=== PATIENT | male | born 1950 | race Caucasian/White ===

== ENCOUNTER 2017-03-06 07:57 | Day surgery (SDC) | payer MEDICARE ==
[~2017-03-06] VITALS: Ht 172.7 cm; Wt 118.0 kg
[~2017-03-06 07:57] MED LIST: ASPI-110 PO; ATOR40TA16 PO; BACL10TA PO; CHOL1CHW5 CHEW; FISHCAP4 PO; METO50TA PO; MULT1TAB46; TAMS0.4C4 PO
[2017-03-06] MEDS ORDERED: NS 1000P @30 MLS/HR (KVO) IV SCH (08:15)
[2017-03-06 08:31] VITALS: BP 159/93; PULSE 64; RESP 18; TEMP 98.8; O2SAT 96
[2017-03-06] MEDS ORDERED: NITR0.4S SL (08:41)
[2017-03-06] MEDS ORDERED: HEPARIN-NS/PF INJ 500 ML ONE (08:53)
[2017-03-06] MEDS ORDERED: MIDAZOLAM HCL 2 MG/2 ML VIAL ONE ×2 (08:56→09:11)
[2017-03-06] MEDS ORDERED: HEPARIN SODIUM - IV 10,000 UNITS/10 ML VIAL ONE (09:21)
[2017-03-06] MEDS ORDERED: CLOPIDOGREL 300 MG TAB ONE (10:15)
[2017-03-06] MEDS ORDERED: SODIUM CHLOR 0.9% 1000 ML INJ 1,000 ML IV SCH (10:17)
--- NOTE | 2017-03-06 10:23 | CATHPROC ---
[employer] HIS Report Study Information Study Number Scheduled Start Study Start [id number] 03/06/2017 Mar 06 2017 8:39AM Referring Institution Admit Source Facility Department 1 Other [facility] - Auto Inspection Specialist Physician and Clinical Staff Initial Cl Hager Grounds Keeper Nick Khan,HANNA Recorder Renny Howard,RT(R) ScrDennys Lentz RCIS(BS) Procedures Performed Procedure Location (Site) Vessel Name Coronary Angiograms LCA Left Coronary Coronary Angiograms RCA Right Coronary PTCA RCA Dist Right Coronary PTCA ADD ON'S Stent RCA Dist Right Coronary Wire insertion Fem Art (right) Femoral Art Equipment Time Leather Shaver Description Size Mfg Part Number Used/Scraped 09:21 [employer] WIRE, Yumber PROWATER 180CM 180CM [id number] Used TRANSDUCER, TRUWAVE 09:10 VALDIVIA DELONG * [id number] Used W/STOCKCOCK 09:56 [employer] W[employer], CHOICE PT 182CM 182CM [id number] Used [id number] *[id number] *[id number] 10:11 [employer]IG[employer] ANGIOSEAL, FR6 VIP FR 6 [id number] Used [id number] 09:10 [employer] INDUSTRIES PACK, CCL CUSTOM * Used *[id number] 09:10 [employer] PACER PEN, SKIN DUAL W/ RULER * [id number] Used [id number] 09:33 [employer] BALLOON, 2.5 X 10MM EUPHORA 10MM Used *[id number] 09:39 [employer] BALLOON, 3.0 X 10MM EUPHORA 10MM Used *[id number] 09:56 [employer] BALLOON, 3.5 X 10MM EUPHORA 3.5 X 10 [id number] Used [id number] 09:49 [employer] STENT, 3.5 9 INTEGRITY 3.5 9 Used *[id number] 10:07 [employer] STENT, 3.5 9 INTEGRITY 3.5 9 Used *[id number] 09:23 [employer] MEDICAL 30 GIN INDEFLATOR Used *[id number] 09:22 [employer] MEDICAL JR 4.0 GUIDE CATHETER FR 6 [id number] Used [id number] 09:10 [employer] MEDICAL SHEATH, FR6.5 PRELUDE 11CM FR 6.5 [id number] Used *[id number] 09:10 [employer] WIRE, 3MMJ .035 180CM 180CM [id number] Used [id number] 09:10 NAMIC MANIFOLD, 4 PORT * Used *[id number] 09:10 [employer] OMNIPAQUE, 350 MG, 100ML 100ML [id number] Used [id number] 09:10 [employer] BLANKET,WARM AIR CCL * Used *[id number] Scrap: Physician 09:30 [employer] STENT, 4.0 9 INTEGRITY 4.0 9 [id number] choice Equipment Model, Serial, Lot Number and Expiration Data Description Model Number Serial Number Lot Number Expiration Date ANGIOSEAL, FR6 VIP [id number] 12-20-2017 STENT, 3.5 9 INTEGRITY [id number] 09-02-2017 STENT, 3.5 9 INTEGRITY [id number] 11-23-2017 STENT, 4.0 9 INTEGRITY [id number] 01-13-2018 WIRE, CHOICE PT 182CM [id number] 09-19-2018 History: Allergies Allergy Reaction Penicillin History: Risk Factors Family History of Hypertension Dyslipidemia Previous ID Previous Heart Failure Premature CAD Yes Yes Yes No No Prior Valve Prior PCI Prior PCIDate Prior CABG Surgery No Yes 10/23/2010 No Cerebrovascular Peripheral Artery Chronic Lung On Dialysis Diabetes Disease Disease Disease No No No No No Labs Hgb (g/dl) Hct (%) WBC (l/cumm) Platelets (thousands) 12.00-18.00 37.00-55.00 4.80-10.80 140.00-450.00 16.3 47.8 7.8 208 Glucose (mg/dl) BUN (mg/dl) Creatinine (mg/dl) BUN:Creatinine (1:x) 60.00-110.00 8.00-20.00 0.10-9.00 10.00-20.00 79 17 0.9 18.9 Na (meq/l) K (meq/l) 138.00-146.00 3.80-5.10 143 4.3 CPK-MB (ng/ML) 0.00-7.00 Not Drawn Medication Medication Total Dose (Bolus/Oral) Medication Total Dosage/Unit 1% XYLOCAINE 20 mL HEPARIN 7000 units OXYGEN 2 l/min PLAVIX 600 mg VERSED 4 mg Medications (Bolus/Oral) Medication Time Given Dosage/Unit Administered By Reason VERSED 03/06/2017 9:04:24 AM 2 mg Nick Khan Patient arrived on 2 mg VERSED given by Nick Khan RN in Left Antecubital via Peripheral IV. Ord ered by Cl Sprague. 1% XYLOCAINE 03/06/2017 9:09:50 AM 20 mL Cl Sprague Patient arrived on 20 mL 1% XYLOCAINE given by Cl Sprague in Right Groin via Subcutaneous. Order ed by Cl Sprague. VERSED 03/06/2017 9:12:30 AM 2 mg Nick Khan Patient arrived on 2 mg VERSED given by Nick Khan RN in Left Antecubital via Peripheral IV. Ord ered by Cl Sprague. OXYGEN 03/06/2017 9:15:11 AM 2 l/min Nick Khan Patient arrived on 2 l/min OXYGEN given by Nick Khan RN via Nasal. Ordered by Cl Sprague. HEPARIN 03/06/2017 9:22:18 AM 7000 units Nick Khan 7000 units HEPARIN given in lab by Nick Khan RN in Left Antecubital via Peripheral IV. Ordered by Cl Sprague. PLAVIX 03/06/2017 10:20:18 AM 600 mg Nick Khan 600 mg PLAVIX given in lab by Nick Khan RN via Oral. Ordered by Cl Sprague. Medication (Drip) Medication Time Given Dosage/Unit Concentration/Unit Diluent (ml) Solution IV Solutions 03/06/2017 8:58:29 AM 0 mL (IV) 500 NaCl .9 Patient arrived on IV Solutions given by Cl Sprague in Left Antecubital via Peripheral IV. Pump/ Drip Flow = 20 ml/hr using NaCl .9. Ordered by Cl Sprague. Reason: As per physicians verbal order. Initial Case Assessment Cardiovascular HR Rhythm NIBP Chest Pain 65 sr 148/84 0 Edema Present Skin color Skin None Normal Warm Dry Circulatory - Right Pulses Dorsalis Pedis Femoral 2 2 Scale (0,1,2,3,4,d) Circulatory - Left Pulses Dorsalis Pedis Femoral 2 2 Scale (0,1,2,3,4,d) Neurological State Oriented to time-place- Alert Moves all extremities person Respiration - General Respiration Rate SpO2 (%) O2 (lpm) (B/min) 67 98 0 Final Case Assessment Cardiovascular HR Rhythm NIBP Chest Pain 69 SR 139/85 0 Edema Present Skin color Skin None Normal Warm Dry Circulatory - Right Pulses Dorsalis Pedis Femoral 2 2 Scale (0,1,2,3,4,d) Circulatory - Left Pulses Dorsalis Pedis Femoral 2 2 Scale (0,1,2,3,4,d) Neurological State Oriented to time-place- Alert Moves all extremities person Respiration - General Respiration Rate SpO2 (%) O2 (lpm) (B/min) 18 98 2 Chronological Log Time Study Chronological Log 8:48:11 Patient arrived via Bed. 8:48:13 Patient Name, D.O.B, / Armband Verified By R.N. 8:48:14 Consent signed by the physician and the patient and verified by the Auto Inspection Specialist staff. 8:48:16 Pre-op and post- op instructions given; patient acknowledges understanding of instructions. 8:48:45 Verbal Stimulation=2 Physical Stimulation=2 Airway=2 Respiration=2 TOTAL=8. (0=absent, 1=li mited, 2=present) 8:56:37 Reference ECG taken 8:57:00 Presedation assessment performed by Auto Inspection Specialist RN. 8:57:02 Patient has been NPO for More than 6Hrs. 8:57:04 Skin Breakdown-none present per patient. Vitals capture started with the following parameters, Patient=Adult, Interval=15 min, Initial P okitrea=491 mmHg, 8:57:18 Deflation Rate=5 mmHg 8:58:17 A # 20 IV was noted in the Antecubital (left). Grade = 0 Patient arrived on IV Solutions given by Cl Sprague in Left Antecubital via Peripheral IV. Pump/Drip Flow = 20 8:58:29 ml/hr using NaCl .9. Ordered by Cl Sprague. Reason: As per physicians verbal order. 8:58:33 HR=69 bpm, XYXH=654/84 mmhg, SpO2=97.0 %, Resp=12 B/min, Daugherty=2 8:59:04 History and physical on the chart or being dictated. Assessment: Initial Case, HR=65 BPM, Rhythm=sr, WDSQ=178/84 mmhg, Chest Pain=0, Edema=None, Dutton r=Normal, Skin = Warm, Dry Right Pulses: Urbano Ped=2, Femoral=2 8:59:06 Left Pulses: Urbano Ped=2, Femoral=2 Neurological: State=Alert, Ox3, PARDO Respiration: Resp=67 B/min, SpO2=98 %, O2=0 lpm 9:00:06 Bilateral groins prepped with 2% chlorhexidine, and with a 3 min. waiting time. 9:02:57 HR=65 bpm, RMNI=459/84 mmhg, SpO2=95.0 %, Resp=15 B/min, Daugherty=2 Time Out. Correct patient, correct procedure,correct physician, ,power injector not loaded with contrast with surgical 9:04:01 team present. Time Out Concurred by MD, individual staff and [employer] in procedure. Not loaded at th is time. 9:04:21 Presedation re-assessment performed by Auto Inspection Specialist RN. 9:04:22 Case Start Patient arrived on 2 mg VERSED given by Nick Khan RN in Left Antecubital via Peripheral IV . Ordered by Celestine 9:04:24 Cl. 9:05:44 Verbal Stimulation=2 Physical Stimulation=2 Airway=2 Respiration=2 TOTAL=8. (0=absent, 1=atwood ited, 2=present) 9:06:26 Pressure channel 1 zeroed. 9:07:58 HR=67 bpm, ZDUU=699/85 mmhg, SpO2=92.0 %, Resp=8 B/min, Daugherty=2 Patient arrived on 20 mL 1% XYLOCAINE given by Cl Sprague in Right Groin via Subcutaneous. Ordered by 9:09:50 Cl Sprague. Patient arrived on 2 mg VERSED given by Nick Khan, HANNA in Left Antecubital via Peripheral IV . Ordered by Celestine 9:12:30 Cl. 9:12:55 HR=62 bpm, JXCH=958/90 mmhg, SpO2=92.0 %, Resp=18 B/min, Daugherty=2 9:14:54 Access site was Right Femoral Artery. 9:15:00 A SHEATH, FR6.5 PRELUDE 11CM FR 6.5 was advanced into the Fem Art (right) using the Modified Seldinger technique. 9:15:11 Patient arrived on 2 l/min OXYGEN given by Nick Khan, HANNA via Nasal. Ordered by Cl Sprague. Recorded Pressure: Ao, HR=69, Condition=Condition 1 9:16:20 (Aorta) Ao 127/73/96 9:16:31 The LCA was injected and visualized at various angles. OMNIPAQUE, 350 MG, 100ML 100ML used. 9:17:58 HR=66 bpm, MFGG=253/80 mmhg, SpO2=90.0 %, Resp=17 B/min, Daugherty=2 9:19:09 Catheter was removed A JR 4.0 INFINITI CATHETER FR 6 was advanced over a wire. OMNIPAQUE, 350 MG, 100ML 100ML was use d for 9:19:33 injections. 9:19:39 The RCA was injected and visualized at various angles. OMNIPAQUE, 350 MG, 100ML 100ML used. 9:22:01 Catheter was removed 9:22:18 7000 units HEPARIN given in lab by Nick Khan RN in Left Antecubital via Peripheral IV. Ordered by Cl Sprague. 9:23:00 HR=69 bpm, NRPW=146/73 mmhg, SpO2=90.0 %, Resp=12 B/min, Daugherty=2 A JR 4.0 GUIDE CATHETER FR 6 was advanced over a wire. OMNIPAQUE, 350 MG, 100ML 100ML was used f or 9:23:03 injections. 9:23:13 OMNIPAQUE, 350 MG, 100ML 100ML and 30 GIN INDEFLATOR added. 9:24:38 A WIRE, ASAHI PROWATER 180CM 180CM was inserted via Fem Art (right). 9:27:59 HR=71 bpm, EQFX=234/82 mmhg, SpO2=91.0 %, Resp=15 B/min, Daugherty=2 9:29:09 Interventional wire has crossed the lesion An STENT, 4.0 9 INTEGRITY 4.0 9 Bare Metal Stent was inserted through a JR 4.0 GUIDE CATHETER FR 6 over a 9:30:06 WIRE, ASAHI PROWATER 180CM 180CM. 9:31:10 Activated Clotting Time Drawn 9:31:57 Stent not deployed. Stent removed and intact. 9:32:56 HR=73 bpm, WWDN=781/84 mmhg, SpO2=94.0 %, Resp=20 B/min, Daugherty=2 9:33:35 A BALLOON, 2.5 X 10MM EUPHORA 10MM was inserted over WIRE, ASAHI PROWATER 180CM 180CM via th e RCA Dist. A BALLOON, 2.5 X 10MM EUPHORA 10MM over a WIRE, ASAHI PROWATER 180CM 180CM in the RCA Dist was inflated 9:33:46 using a 30 GIN INDEFLATOR at 12 gni for 15 sec. A BALLOON, 2.5 X 10MM EUPHORA 10MM over a WIRE, ASAHI PROWATER 180CM 180CM in the RCA Dist was inflated 9:34:51 using a 30 GIN INDEFLATOR at 14 gin for 25 sec. 9:35:34 Balloon Removed. An STENT, 4.0 9 INTEGRITY 4.0 9 Bare Metal Stent was inserted through a JR 4.0 GUIDE CATHETER F R 6 over a 9:35:43 WIRE, ASAHI PROWATER 180CM 180CM. 9:35:59 ACT (Normal Range 90-180) = 277 9:37:38 Stent not deployed. Stent removed and intact. 9:37:57 HR=73 bpm, CAZK=262/81 mmhg, SpO2=94.0 %, Resp=21 B/min, Daugherty=2 9:38:45 A BALLOON, 3.0 X 10MM EUPHORA 10MM was inserted over WIRE, ASAHI PROWATER 180CM 180CM via th e RCA Dist. A BALLOON, 3.0 X 10MM EUPHORA 10MM over a WIRE, ASAHI PROWATER 180CM 180CM in the RCA Dist was inflated 9:39:07 using a 30 GIN INDEFLATOR at 12 gin for 25 sec. 9:40:47 Balloon Removed. An STENT, 4.0 9 INTEGRITY 4.0 9 Bare Metal Stent was inserted through a JR 4.0 GUIDE CATHETER F R 6 over a 9:41:15 WIRE, ASAHI PROWATER 180CM 180CM. 9:42:48 Stent not deployed. Stent removed and intact. 9:42:58 HR=71 bpm, AILC=464/81 mmhg, SpO2=93.0 %, Resp=13 B/min, Daugherty=2 A BALLOON, 3.5 X 10MM EUPHORA 3.5 X 10 was inserted over WIRE, ASAHI PROWATER 180CM 180CM via t he RCA 9:44:59 Dist. A BALLOON, 3.5 X 10MM EUPHORA 3.5 X 10 over a WIRE, ASAHI PROWATER 180CM 180CM in the RCA Dist was 9:45:09 inflated using a 30 GIN INDEFLATOR at 10 gin for 10 sec. 9:45:40 Balloon Removed. An STENT, 4.0 9 INTEGRITY 4.0 9 Bare Metal Stent was inserted through a JR 4.0 GUIDE CATHETER F R 6 over a 9:46:40 WIRE, ASAHI PROWATER 180CM 180CM. 9:47:59 HR=72 bpm, KKXR=910/84 mmhg, SpO2=93.0 %, Resp=14 B/min, Daugherty=2 9:48:34 Stent not deployed. Stent removed and intact. An STENT, 3.5 9 INTEGRITY 3.5 9 Bare Metal Stent was inserted through a JR 4.0 GUIDE CATHETER F R 6 over a 9:49:58 WIRE, ASAHI PROWATER 180CM 180CM. 9:50:45 Stent not deployed. Stent removed and intact. A BALLOON, 3.5 X 10MM EUPHORA 3.5 X 10 was inserted over WIRE, ASAHI PROWATER 180CM 180CM via t he RCA 9:52:30 Dist. 9:53:00 HR=70 bpm, QOLC=750/75 mmhg, SpO2=94.0 %, Resp=15 B/min, Daugherty=2 A BALLOON, 3.5 X 10MM EUPHORA 3.5 X 10 over a WIRE, ASAHI PROWATER 180CM 180CM in the RCA Dist was 9:55:49 inflated using a 30 GIN INDEFLATOR at 14 gin for 25 sec. 9:56:52 Balloon Removed. 9:57:08 Wire removed 9:57:10 A WIRE, CHOICE PT 182CM 182CM was inserted via Fem Art (right). 9:57:43 A BALLOON, 3.5 X 10MM EUPHORA 3.5 X 10 was inserted over WIRE, CHOICE PT 182CM 182CM via the RCA Dist. 9:58:01 HR=64 bpm, XXUV=372/83 mmhg, SpO2=96.0 %, Resp=22 B/min, Daugherty=2 A BALLOON, 3.5 X 10MM EUPHORA 3.5 X 10 over a WIRE, CHOICE PT 182CM 182CM in the RCA Dist was i nflated using 9:58:12 a 30 GIN INDEFLATOR at ~GIN~ gin for ~SECONDS~ sec. 10:00:00 Balloon Removed. 10:00:53 A BALLOON, 2.5 X 10MM EUPHORA 10MM was inserted over WIRE, CHOICE PT 182CM 182CM via the RC A Dist. A BALLOON, 2.5 X 10MM EUPHORA 10MM over a WIRE, CHOICE PT 182CM 182CM in the RCA Dist was infla ryan using a 10::55 30 GIN INDEFLATOR at 16 gin for 25 sec. 10:02:11 Balloon Removed. 10:03:02 HR=69 bpm, DAGO=931/80 mmhg, SpO2=94.0 %, Resp=17 B/min, Daugherty=2 An STENT, 3.5 9 INTEGRITY 3.5 9 Bare Metal Stent was inserted through a JR 4.0 GUIDE CATHETER F R 6 over a :04:03 WIRE, CHOICE PT 182CM 182CM. A STENT, 3.5 9 INTEGRITY 3.5 9 was deployed using a 30 GIN INDEFLATOR at 14 atmospheres for 18 seconds in the :04:36 RCA Dist. 10:06:16 Delivery device removed An STENT, 3.5 9 INTEGRITY 3.5 9 Bare Metal Stent was inserted through a JR 4.0 GUIDE CATHETER F R 6 over a 10:07:45 WIRE, CHOICE PT 182CM 182CM. 10:08:03 HR=73 bpm, RMDI=485/85 mmhg, SpO2=94.0 %, Resp=13 B/min, Daugherty=2 A STENT, 3.5 9 INTEGRITY 3.5 9 was deployed using a 30 GIN INDEFLATOR at 16 atmospheres for 20 seconds in the :08:25 RCA Dist. 10::50 Delivery device removed ::54 Wire removed 10:: Catheter was removed 10:: An injection in the Fem Art (right) was made through the SHEATH, FR6.5 PRELUDE 11CM FR 6.5. 10:11:05 ANGIOSEAL, FR6 VIP FR 6 placement in the Fem Art (right) Assessment: Final Case, HR=69 BPM, Rhythm=SR, FJPQ=284/85 mmhg, Chest Pain=0, Edema=None, Color =Normal, Skin = Warm, Dry Right Pulses: Urbano Ped=2, Femoral=2 10:11:16 Left Pulses: Urbano Ped=2, Femoral=2 Neurological: State=Alert, Ox3, PARDO Respiration: Resp=18 B/min, SpO2=98 %, O2=2 lpm 10:12:36 Case End 10:12:39 Sterile dressing applied to site 10:12:41 No case complications noted. 10:12:43 Cine recording checked. 10:12:46 Bedside Report will be given. 10:12:48 Implantable Device card placed in patient's chart. 10:12:54 Contrast Scanned 10:13:00 HR=67 bpm, MGNG=309/85 mmhg, SpO2=99.0 %, Resp=7 B/min, Daugherty=2 10:13:04 Vitals capture stopped. 10:20:18 600 mg PLAVIX given in lab by Nick Khan RN via Oral. Ordered by Cl Sprague. End Study - Contrast Media Used In Study Contrast Total Opened (mL) Total Used (mL) Total Wasted (mL) Omnipaque 275 275 0 End Study - Maximum Contrast Load Max Contrast Load (mL) 655.6 End Study - Radiation Exposure Fluoro Time (minutes) 16.2 End Study - Patient Disposition Complications Transferred To No Telemetry Bed
[2017-03-06] MEDS ORDERED: SODIUM CHLOR 0.9% 250 ML INJ 250 ML IV PRN (10:30)
[2017-03-06] MEDS ORDERED: MISC INFORMATION XX ONE (10:30)
[2017-03-06] MEDS ORDERED: ONDANSETRON HCL 4 MG/2 ML VIAL IV PRN (10:30)
[2017-03-06] MEDS ORDERED: LIDOCAINE HCL 1% 50 ML VIAL INFIL PRN (10:30)
[2017-03-06] MEDS ORDERED: BACITRACIN OINT 0.9 GM PKT TOP ONE (10:30)
[2017-03-06] MEDS ORDERED: METOCLOPRAMIDE HCL 10 MG/2 ML VIAL IV PRN (10:30)
[2017-03-06] MEDS ORDERED: ATROPINE SULFATE 1 MG/ML VIAL IV PRN (10:30)
[2017-03-06] MEDS ORDERED: LORazepam 2 MG/ML VIAL IV PRN (10:30)
--- NOTE | 2017-03-06 11:45 | MA ---
cc: DOUG CASTELLON MD DATE 03/06/2017 PROCEDURE The patient was prepped and draped in the usual fashion. A 6 sheath was inserted percutaneously into the right femoral artery. Coronary angiography was done with Jorge preformed catheters. RESULTS Aortic pressure was 127/73. CORONARY ANGIOGRAPHY The left main coronary was normal. The left anterior descending artery demonstrated luminal irregularities throughout its course with a 30% stenosis noted in its proximal portion. The first diagonal branch appeared to be totally occluded with collateralization from the left system. An intraluminal stent was present in the LAD which was widely patent. The left circumflex artery arose from the left main, was essentially without high-grade stenosis. There were mild luminal irregularities. Collateralization of the distal right coronary was seen through the left circumflex. The right coronary was anatomically dominant. Significant luminal irregularities were present throughout its course with a 40-50% stenosis noted in the midportion. A subtotal stenosis was present at the crux. This is felt be the culprit lesion. An FR-4 guide was used and Prowater wire was advanced across the lesion and actually into the posterolateral branch. I was unable to successfully negotiate the posterior descending. An attempt at primary stenting with a 4.0 bare metal stent was unsuccessful. Multiple inflations were made, first with a 2.5 balloon and then with a 3.0 and finally a 3.5 balloon. This did result in some modification of the lesion. The stent was unable to be passed. The catheter was withdrawn as was the Prowater wire. A PT Floppy wire was then advanced across the lesion and this time successfully into the posterior descending branch. Two inflations were made with the 2.5 balloon and then a 3.5 x 8-mm bare metal stent was able to be deployed. Following deployment, a stenosis just distal to the stent was still present compromising the lumen by approximately 50%. A second 3.5 x 8-mm bare metal stent was then deployed overlapping the first stent to 16 atmospheres with a very good cosmetic result. CRYSTAL-3 flow was present both pre- and post-dilatation and post-stenosis was 0. The equipment was then withdrawn and the groin was sealed with Angio-Seal technique. IMPRESSION Successful PTCA and stenting of a high-grade stenosis in the mid to distal right coronary artery. MD ZAHRAA Russell/SHANE /10:24 AM /11:22 AM
[2017-03-06] MEDS ORDERED: IOHEXOL 350 MG/ML 100 ML BTL (for Cath Lab) OTHER ONE (14:28)
== END 2017-03-06 16:50 | disposition home or self-care (01) ==
LOC: HDOC 07:57 → HDIC 07:58 → HDOC 16:50
PROVIDERS: ATTEND Internal Medicine Cardiovascular Disease
DX: I25.119 Atherosclerotic heart disease of native coronary artery with unspecified angina pectoris (principal); I25.82 Chronic total occlusion of coronary artery; I25.2 Old myocardial infarction; Z95.5 Presence of coronary angioplasty implant and graft; Z87.891 Personal history of nicotine dependence; Z88.0 Allergy status to penicillin; Z79.82 Long term (current) use of aspirin
CPT/HCPCS: 85002; 92928; 93454; C1725; C1760; C1769; C1876; C1887; C1893; G0269; J1644; J2250; Q9967

== ENCOUNTER 2017-05-24 06:26 | Day surgery (SDC) | payer MEDICARE ==
[~2017-05-24] VITALS: Ht 172.7 cm; Wt 115.0 kg
[~2017-05-24 06:26] MED LIST changes: -BACL10TA PO; -MULT1TAB46; +NITR0.4S SL
[2017-05-24 06:56] VITALS: BP 153/85; PULSE 79; RESP 16; TEMP 97.8; O2SAT 95
[2017-05-24] MEDS ORDERED: ASPI-147 PO (07:12)
[2017-05-24] MEDS ORDERED: VITATAB11 PO (07:12)
[2017-05-24] MEDS ORDERED: PLAV75TA29 PO (07:12)
[2017-05-24] MEDS ORDERED: ISOS30TA3 PO (07:12)
[2017-05-24] MEDS ORDERED: CHOL1CAP6 PO (07:12)
[2017-05-24] MEDS ORDERED: BACL10TA PO (07:12)
[2017-05-24] MEDS ORDERED: NS 1000P @30 MLS/HR (KVO) IV SCH (07:15)
[2017-05-24] MEDS ORDERED: HEPARIN-NS/PF INJ 500 ML ONE (08:14)
[2017-05-24] MEDS ORDERED: MIDAZOLAM HCL 2 MG/2 ML VIAL ONE (08:15)
[2017-05-24] MEDS ORDERED: HEPARIN SODIUM - IV 10,000 UNITS/10 ML VIAL ONE (08:36)
[2017-05-24] MEDS ORDERED: MISC INFORMATION XX ONE (09:30)
--- NOTE | 2017-05-24 09:32 | CATHPROC ---
Yodlee HIS Report Study Information Study Number Admission Scheduled Start Study Start [id number] May 24 2017 6:26AM 05/24/2017 May 24 2017 8:01AM Study Type [place] Service Left/Possible PCI Cardiac Catheterization Admit Source Facility Department Other [facility] - [facility] Physician and Clinical Staff Initial Cl Hager Cap Sewer Cora Rouse BSRN Other cathlab, cathlab Recorder Ruddy Temple RCIS(BS) More Lr RCIS TECH2 Procedures Performed Procedure Location (Site) Vessel Name Coronary Angiograms LCA Left Coronary Coronary Angiograms RCA Right Coronary Drug Eluting Inflatio LAD Prox Left Coronary Drug Eluting Inflatio RCA Dist Right Coronary PTCA LAD Prox Left Coronary Wire insertion Fem Art (right) Femoral Art Equipment Time Pallet Stone Positioner Description Size Mfg Part Number Used/Scraped [id number] 08:50 [employer] WIRE, ASAHI PROWATER 180CM 180CM Used *[id number] TRANSDUCER, TRUWAVE [id number] 08:09 VALDIVIA DELONG * Used W/STOCKCOCK *[id number] *[id number] *[id number] *[id number] *[id number] 09:22 DAIG/[employer] ANGIOSEAL, FR6 VIP FR 6 Used *[id number] 08:09 [employer] PACK, CCL CUSTOM * Used *[id number] 08:09 [employer] PACER PEN, SKIN DUAL W/ RULER * Used *[id number] 09:01 MEDTRONIC BALLOON, 3.5 X 12MM EUPHORA 12MM Used *[id number] STENT, 3.0 12 RESOLUTE [id number] 08:57 MEDTRONIC 3.0 12 Used INTEGRITY RX *[id number] STENT, 3.5 9 RESOLUTE 09:10 MEDTRONIC 3.5 9 [id number] Used INTEGRITY RX [id number] 08:48 CallVU MEDICAL 30 GIN INDEFLATOR Used *[id number] 08:09 [employer]U MEDICAL SHEATH, FR6.5 PRELUDE 11CM FR 6.5 038ACT Used *[id number] 08:09 [employer] MEDICAL WIRE, 3MMJ .035 180CM 180CM Used *[id number] 08:09 NAMIC MANIFOLD, 4 PORT * Used *[id number] 08:09 [employer]COMED OMNIPAQUE, 350 MG, 100ML 100ML [id number] Used [id number] 08:09 [facility] BLANKET,WARM AIR CCL * Used *[id number] Equipment Model, Serial, Lot Number and Expiration Data Description Model Number Serial Number Lot Number Expiration Date STENT, 3.0 12 RESOLUTE [id number] 08-09-2018 INTEGRITY RX STENT, 3.5 9 RESOLUTE [id number] 06-23-2017 INTEGRITY RX History: Current Medications Medication Dosage/Unit Route Frequency Last Date/Time Taken Statins (any) Beta Tunde ASA PLAVIX History: Allergies Allergy Reaction Penicillin History: Risk Factors Family History of Hypertension Dyslipidemia Previous KS Previous Heart Failure Premature CAD Yes Yes Yes No No Prior Valve Prior PCI Prior PCIDate Prior CABG Surgery No Yes 03/06/2017 No Cerebrovascular Peripheral Artery Chronic Lung On Dialysis Diabetes Disease Disease Disease No No No No No History: Symptoms/Diagnosis Selection Items Chest pain History: Stress Tests Stress or Imaging Studies Performed Yes Standard Exercise Stress Test No Stress Echo No Stress Test SPECT Stress Test SPECT Result Stress Test SPECT Ischemia Risk/Extent Yes Positive High Stress Test CMR No Cardiac CTA Coronary Calcium Score No No History: Other Disease Selection Items CAD HTN History: KS/CV Data Previous Cath Date 03/06/2017 History: Other Current Smoker No Labs Hgb (g/dl) Hct (%) WBC (l/cumm) Platelets (thousands) 11.60-17.00 35.00-51.00 4.00-11.00 150.00-450.00 15.2 44.8 8.2 194 Glucose (mg/dl) BUN (mg/dl) Creatinine (mg/dl) BUN:Creatinine (1:x) 74.00-106.00 7.00-18.00 0.50-1.30 10.00-20.00 103 17 0.9 18.9 Na (meq/l) K (meq/l) 136.00-145.00 3.50-5.10 141 4.2 INR (PTT:PT) 0.90-1.10 1 CPK-MB (ng/ML) 0.50-3.60 Not Drawn Medication Medication Total Dose (Bolus/Oral) Medication Total Dosage/Unit 1% XYLOCAINE 20 mL HEPARIN 7000 units VERSED 2 mg Medications (Bolus/Oral) Medication Time Given Dosage/Unit Administered By Reason VERSED 05/24/2017 8:30:02 AM 2 mg Cora Rouse 2 mg VERSED given in lab by Cora Rouse BSRN in Left Antecubital via Peripheral IV. Ordered by Cl Sprague. 1% XYLOCAINE 05/24/2017 8:37:41 AM 20 mL Cl Sprague 20 mL 1% XYLOCAINE given in lab by Cl Sprague in Right Groin via Subcutaneous. HEPARIN 05/24/2017 8:48:07 AM 7000 units Cora Rouse 7000 units HEPARIN given in lab by Cora Rouse BSRN via Peripheral IV. Medication (Drip) Medication Time Given Dosage/Unit Concentration/Unit Diluent (ml) Solution IV Solutions 05/24/2017 8:08:14 AM 0 mL (IV) 500 NaCl .9 Patient arrived on IV Solutions in Left Antecubital via Peripheral IV. Pump/Drip Flow = 20 ml/hr usin g NaCl .9. Initial Case Assessment Cardiovascular HR Rhythm NIBP Chest Pain 66 sinus 119/70 0 Edema Present Skin color Skin None Normal Warm Dry Circulatory - Right Pulses Dorsalis Pedis Femoral 1 1 Scale (0,1,2,3,4,d) Circulatory - Left Pulses Dorsalis Pedis Femoral 1 1 Scale (0,1,2,3,4,d) Neurological State Oriented to time-place- Alert Moves all extremities person Respiration - General Respiration Rate SpO2 (%) (B/min) 15 95 Final Case Assessment Cardiovascular HR Rhythm NIBP Chest Pain 65 sinus 123/68 0 Edema Present Skin color Skin None Normal Warm Dry Circulatory - Right Pulses Dorsalis Pedis Femoral 1 1 Scale (0,1,2,3,4,d) Circulatory - Left Pulses Dorsalis Pedis Femoral 1 1 Scale (0,1,2,3,4,d) Neurological State Oriented to time-place- Alert Moves all extremities person Respiration - General Respiration Rate SpO2 (%) (B/min) 15 95 Chronological Log Time Study Chronological Log 8:08:06 Patient arrived via Bed. 8:08:06 Patient Name, D.O.B, / Armband Verified By R.N. 8:08:07 Consent signed by the physician and the patient and verified by the [employer] [facility] staff. 8:08:07 Pre-op and post- op instructions given; patient acknowledges understanding of instructions. 8:08:08 Verbal Stimulation=2 Physical Stimulation=2 Airway=2 Respiration=2 TOTAL=8. (0=absent, 1=li mited, 2=present) 8:08:09 Presedation assessment performed by [facility] RN. 8:08:10 Immediate Presedation assesment performed by physician. 8:08:10 Patient has been NPO for More than 6Hrs. 8:08:11 Skin Breakdown- none per patient 8:08:12 Patient Warmer Placed on the Table. 8:08:13 [place] Prominences Protected 8:08:13 A # 20 IV was noted in the Antecubital (left). Grade = 0 8:08:14 Patient arrived on IV Solutions in Left Antecubital via Peripheral IV. Pump/Drip Flow = 20 ml/hr using NaCl .9. 8:11:52 History and physical on the chart or being dictated. Vitals capture started with the following parameters, Patient=Adult, Interval=5 min, Initial Pr ovviut=335 mmHg, 8:12:12 Deflation Rate=5 mmHg, Cuff placed on Right Arm 8:12:54 HR=69 bpm, NXQA=077/70 mmhg, SpO2=95.0 %, Resp=15 B/min, Pain=0, Isha=10, Daugherty=2 Assessment: Initial Case, HR=66 BPM, Rhythm=sinus, OREA=035/70 mmhg, Chest Pain=0, Edema=None, Color=Normal, Skin = Warm, Dry Right Pulses: Urbano Ped=1, Femoral=1 8:14:33 Left Pulses: Urbano Ped=1, Femoral=1 Neurological: State=Alert, Ox3, PARDO Respiration: Resp=15 B/min, SpO2=95 % 8:15:29 Reference ECG taken 8:17:49 HR=56 bpm, KKMA=409/66 mmhg, SpO2=94.0 %, Resp=8 B/min, Pain=0, Isha=10, Daugherty=2 8:23:15 Bilateral groins prepped with 2% chlorhexidine, and with a 3 min. waiting time. 8:23:22 HR=60 bpm, XUNA=982/81 mmhg, SpO2=95.0 %, Resp=13 B/min, Pain=0, Isha=10, Daugherty=2 8:27:44 MD arrived. 8:27:47 Contrast Scanned 8:27:48 Immediate Presedation assesment performed by physician. 8:27:51 HR=68 bpm, SLSF=468/77 mmhg, SpO2=95.0 %, Resp=15 B/min, Pain=0, Isha=10, Daugherty=2 Time Out. Correct patient, correct procedure,correct physician, ,power injector loaded or not lo aded with contrast with 8:28:12 surgical team present. Time Out Concurred by MD, individual staff and RECYCLING CREW SUPERVISOR in procedure 8:28:57 Contrast Scanned 8:28:58 Immediate Presedation assesment performed by physician. 8:30:02 2 mg VERSED given in lab by Cora Rouse BSRN in Left Antecubital via Peripheral IV. Or dered by Cl Sprague. 8:33:11 Pressure channel 1 zeroed. 8:33:20 HR=63 bpm, VJSJ=036/75 mmhg, SpO2=90.0 %, Resp=12 B/min, Pain=0, Isha=10, Daugherty=2 Time Out. Correct patient, correct procedure,correct physician, ,power injector not loaded with contrast with surgical 8:35:00 team present. Time Out Concurred by , individual staff in procedure 8:35:09 Case Start 8:35:10 Verbal Stimulation=2 Physical Stimulation=2 Airway=2 Respiration=2 TOTAL=8. (0=absent, 1=atwood ited, 2=present) 8:37:41 20 mL 1% XYLOCAINE given in lab by Cl Sprague in Right Groin via Subcutaneous. 8:37:53 HR=60 bpm, VESR=720/61 mmhg, SpO2=92 %, Resp=10 B/min, Pain=0, Isha=10, Daugherty=2 8:41:01 Access site was Right Femoral Artery. 8:41:04 A SHEATH, FR6.5 PRELUDE 11CM FR 6.5 was advanced into the Fem Art (right) using the Percutan eous technique. 8:42:50 HR=58 bpm, YMMG=047/69 mmhg, SpO2=90.0 %, Resp=17 B/min, Pain=0, Isha=10, Daugherty=2 A JL 4.0 INFINITI CATHETER FR 6 was advanced over a wire. OMNIPAQUE, 350 MG, 100ML 100ML was use d for 8:43:04 injections. Recorded Pressure: Ao, HR=62, Condition=Condition 1 8:44:14 (Aorta) Ao 101/64/80 8:44:21 The LCA was injected and visualized at various angles. OMNIPAQUE, 350 MG, 100ML 100ML used. 8:46:11 Catheter was removed A JR 4.0 INFINITI CATHETER FR 6 was advanced over a wire. OMNIPAQUE, 350 MG, 100ML 100ML was use d for 8:46:12 injections. 8:47:51 HR=62 bpm, FAQX=181/72 mmhg, SpO2=93.0 %, Resp=15 B/min, Pain=0, Isha=10, Daugherty=2 8:48:07 7000 units HEPARIN given in lab by Cora Rouse BSRN via Peripheral IV. 8:48:07 The RCA was injected and visualized at various angles. OMNIPAQUE, 350 MG, 100ML 100ML used. 8:50:25 Catheter was removed A XBLAD 3.5 GUIDE CATHETER FR 6 was advanced over a wire. OMNIPAQUE, 350 MG, 100ML 100ML was use d for 8:52:21 injections. 8:52:52 HR=63 bpm, XLTT=621/62 mmhg, SpO2=93.0 %, Resp=8 B/min, Pain=0, Isha=10, Daugherty=2 8:54:28 Activated Clotting Time Drawn 8:55:24 A WIRE, ASAHI PROWATER 180CM 180CM was inserted via Fem Art (right). 8:55:42 Interventional wire has crossed the lesion A STENT, 3.0 12 RESOLUTE INTEGRITY RX 3.0 12 was advanced through a XBLAD 3.5 GUIDE CATHETER FR 6 over a 8:57:39 WIRE, ASAHI PROWATER 180CM 180CM. 8:57:51 HR=60 bpm, ZNPW=386/64 mmhg, SpO2=90.0 %, Resp=10 B/min, Pain=0, Isha=10, Daugherty=2 8:58:45 ACT (Normal Range 90-180) = 260 A STENT, 3.0 12 RESOLUTE INTEGRITY RX 3.0 12 was deployed using a 30 GIN INDEFLATOR at 16 atmosp heres for 8:59:29 20 seconds in the LAD Prox. 9:00:23 Delivery device removed 9:01:17 A BALLOON, 3.5 X 12MM EUPHORA 12MM was inserted over WIRE, ASAHI PROWATER 180CM 180CM via th e LAD Prox. A BALLOON, 3.5 X 12MM EUPHORA 12MM over a WIRE, ASAHI PROWATER 180CM 180CM in the LAD Prox was i nflated 9:01:29 using a 30 GIN INDEFLATOR at 9 gin for 20 sec. 9:02:54 HR=60 bpm, NCNG=579/69 mmhg, SpO2=91.0 %, Resp=15 B/min, Pain=0, Isha=10, Daugherty=2 9:04:09 Balloon Removed. 9:05:13 Wire removed 9:05:14 Catheter was removed A JR 4.0 GUIDE CATHETER FR 6 was advanced over a wire. OMNIPAQUE, 350 MG, 100ML 100ML was used f or 9:05:28 injections. 9:07:55 HR=60 bpm, LYRB=656/64 mmhg, SpO2=95 %, Resp=17 B/min, Pain=0, Isha=10, Daugherty=2 9:08:38 A WIRE, ASAHI PROWATER 180CM 180CM was inserted via Fem Art (right). 9:08:57 Interventional wire has crossed the lesion A STENT, 3.5 9 RESOLUTE INTEGRITY RX 3.5 9 was advanced through a JR 4.0 GUIDE CATHETER FR 6 ove r a WIRE, 9:09:49 ASAHI PROWATER 180CM 180CM. A STENT, 3.5 9 RESOLUTE INTEGRITY RX 3.5 9 was deployed using a 30 GIN INDEFLATOR at 10 atmosphe res for 15 9:12:01 seconds in the RCA Dist. 9:12:54 HR=61 bpm, TODH=065/65 mmhg, SpO2=93.0 %, Resp=15 B/min, Pain=0, Isha=10, Daugherty=2 9:13:18 Re-inflated the stent balloon in the RCA Dist to 14 GIN for 20 seconds. 9:15:06 Re-inflated the stent balloon in the RCA Dist to 16 GIN for 20 seconds. 9:17:01 Re-inflated the stent balloon in the RCA Dist to 18 GIN for 20 seconds. 9:17:55 HR=69 bpm, PHLX=216/66 mmhg, SpO2=94.0 %, Resp=16 B/min, Pain=0, Isha=10, Daugherty=2 9:19:12 Delivery device removed 9:19:16 Wire removed 9:19:18 Catheter was removed 9:19:41 An injection in the Fem Art (right) was made through the SHEATH, FR6.5 PRELUDE 11CM FR 6.5. 9:20:40 ANGIOSEAL, FR6 VIP FR 6 placement in the Fem Art (right) 9:23:03 HR=65 bpm, NIBP=70/35 mmhg, SpO2=94.0 %, Resp=12 B/min, Pain=0, Isha=10, Daugherty=2 9:23:17 Case End Assessment: Final Case, HR=65 BPM, Rhythm=sinus, IXMX=802/68 mmhg, Chest Pain=0, Edema=None, Color=Normal, Skin = Warm, Dry Right Pulses: Urbano Ped=1, Femoral=1 9:23:26 Left Pulses: Urbano Ped=1, Femoral=1 Neurological: State=Alert, Ox3, PARDO Respiration: Resp=15 B/min, SpO2=95 % Vitals capture started with the following parameters, Patient=Adult, Interval=5 min, Initial Pre atzxc=901 mmHg, 9:23:33 Deflation Rate=5 mmHg, Cuff placed on Right Arm 9:24:17 Catheter(s) removed without difficulty 9:24:18 In the Fem Art (right) the SHEATH, FR6.5 PRELUDE 11CM FR 6.[address] by More Johns RCIS TECH2. 9:24:22 Sterile dressing applied to site 9:24:22 No case complications noted. 9:24:23 Cine recording checked. 9:: Bedside Report will be given. :: Implantable Device card placed in patient's chart. 9:24:29 Verbal Stimulation=2 Physical Stimulation=2 Airway=2 Respiration=2 TOTAL=8. (0=absent, 1=l imited, 2=present) 9:24:37 HR=64 bpm, PEMU=830/68 mmhg, SpO2=97.0 %, Resp=15 B/min, Pain=0, Isha=10, Daugherty=2 9:29:59 Vitals capture stopped. End Study - Contrast Media Used In Study Contrast Total Opened (mL) Total Used (mL) Total Wasted (mL) Omnipaque 150 150 0 End Study - Maximum Contrast Load Max Contrast Load (mL) 638.9 End Study - Radiation Exposure Fluoro Time (minutes) 7.2 End Study - Patient Disposition Complications Transferred To Interventional Outcome No [facility] Holding successful
[2017-05-24] MEDS ORDERED: IOHEXOL 350 MG/ML 50 ML BTL (for Cath Lab) OTHER ONE (11:48)
[2017-05-24] MEDS ORDERED: IOHEXOL 350 MG/ML 100 ML BTL (for Cath Lab) OTHER ONE (11:48)
--- NOTE | 2017-05-24 11:52 | MA ---
cc: DOUG CASTELLON DATE 05/24/2017 PROCEDURAL STATEMENT The patient was prepped and draped in the usual fashion. 6 sheath was inserted percutaneously in the right femoral artery. Coronary angiography was done with Jorge preformed catheter. RESULTS The left main coronary was full. The left anterior descending artery demonstrated intraluminal stent in its proximal portion. In-stent stenosis was present compromising the lumen by 90% or greater. CRYSTAL-II flow was present to the distal portion of the artery. No other significant stenoses were seen. The left circumflex artery demonstrated some mild luminal irregularities in the circumflex. Two large obtuse marginal branches were given off both of which were essentially free from disease. The right coronary artery demonstrated luminal irregularities throughout its course. A 50% stenosis was present in its midportion. Intraluminal stents were still patent in the distal portion of the artery, however in-stent stenosis was present in the distal portion of the stent just proximal to the crux compromising the lumen by approximately 80-90%. Following consent, heparin was administered with an ACT of 260 seconds. An XB LAD 3.5 guide was used and a Prowater wire was advanced into the distal LAD. Primary stenting of the in-stent stenosis was accomplished with a 3.0 x 12-mm drug-eluting stent. The dilatation was done with a 3.5 x 12 mm balloon to 14 atmospheres with a very good cosmetic result. CRYSTAL-III flow was restored and essentially 0 stenosis was present. The equipment was then withdrawn. An FR-4 guide was then inserted at the orifice of the right coronary and Prowater wire advanced into the distal right coronary. A drug-eluting stent was then deployed across the in-stent stenosis. This was a 3.5 x 8 mm stent. It was postdilated to 18 atmospheres and eventually achieved a good cosmetic result. CRYSTAL-III flow was present throughout the case. Essentially zero residual was present. The equipment was then withdrawn. An Angio-Seal was inserted into the groin for hemostasis. CONCLUSION Successful PTCA and stenting of in-stent stenosis in the LAD and right coronary arteries. MD ZAHRAA Russell/SALTY /9:37 AM /11:47 AM
[2017-05-25] MEDS ORDERED: ASPIRIN 81 MG CHEW TAB PO SCH (09:00)
[2017-05-25] MEDS ORDERED: CLOPIDOGREL 75 MG TAB PO SCH (09:00)
== END 2017-05-24 14:08 | disposition home or self-care (01) ==
LOC: HDOC 06:26 → HDIC 06:27 → HDOC 14:08
PROVIDERS: ATTEND Internal Medicine Cardiovascular Disease
DX: T82.897A Other specified complication of cardiac prosthetic devices, implants and grafts, initial encounter (principal); I25.119 Atherosclerotic heart disease of native coronary artery with unspecified angina pectoris; I25.2 Old myocardial infarction; N18.2 Chronic kidney disease, stage 2 (mild); M50.30 Other cervical disc degeneration, unspecified cervical region; R51 Headache; N40.0 Benign prostatic hyperplasia without lower urinary tract symptoms; G47.30 Sleep apnea, unspecified; R06.83 Snoring; E55.9 Vitamin D deficiency, unspecified; M47.812 Spondylosis without myelopathy or radiculopathy, cervical region; Z87.891 Personal history of nicotine dependence
CPT/HCPCS: 85002; 92928; 92929; 93454; C1725; C1760; C1769; C1874; C1887; C1893; G0269; J1644; J2250; Q9967